=== PATIENT | female | born 1955 | race Caucasian/White ===

== ENCOUNTER 2023-05-11 22:24 | Emergency (ER) | payer MEDICARE, OTHER ==
[~2023-05-11] VITALS: Ht 162.6 cm; Wt 83.5 kg
[2023-05-11 23:41] LABS: BASOPHILS 0.9 % (0-2); EOSINOPHILS 6.8 % (0-6); HEMATOCRIT 27.1 % (35.0-50.0); HEMOGLOBIN 8.7 g/dL (12.0-18.0); LYMPHOCYTES 39.8 % (24-44); MCV 84.3 fl (81-99); NEUTROPHILS 44.5 % (39-80); PLATELET COUNT 328 K/uL (140-440); RBC 3.21 M/ul (4.3-5.7); RDW 17.2 (10.5-15.0)
[2023-05-11 23:42] LABS: BILIRUBIN, URINE NEGATIVE (negative); BLOOD/HGB, URINE TRACE-L (Negative); KETONE, URINE NEGATIVE (Negative); LEUK ESTERASE, URINE TRACE (negative); NITRITE, URINE NEGATIVE (negative); PH, URINE 6.5 (5-7)
[2023-05-11 23:50] LABS: INR 1.18 (0.80-1.30); PARTIAL THROMBOPLASTIN TIME 38.4 Sec (22.9-41.3); PROTIME 14.2 Sec (11.2-14.2)
[2023-05-11 23:51] LABS: BACTERIA, URINE RARE /hpf (negative); CASTS, URINE NONE SEEN \\lpf; CRYSTALS, URINE NONE SEEN (0-1+)
[2023-05-11 23:52] LABS: REFLEX CULTURE, URINE No (No)
[2023-05-11 23:54] LABS: ALBUMIN 2.5 g/dL (3.4-5.0); ALBUMIN/GLOBULIN RATIO 0.61 (1.1-2.4); BILIRUBIN, TOTAL 0.2 ng/dL (0.2-1.0); BUN/CREATININE RATIO 14.66 (6.0-28.6); CALCIUM 9.3 mg/dL (8.5-10.1); CREATININE, SERUM 0.75 mg/dL (0.55-1.02); PROTEIN, TOTAL 6.6 g/dL (6.4-8.2)
[2023-05-12 00:16] LABS: ABO AB; ANTIBODY SCREEN NEGATIVE; RH POSITIVE
[2023-05-12 00:47] VITALS: BP 124/52
[2023-05-12] MEDS ORDERED: K-TAB ER20 MEQ PO (01:51)
[2023-05-14] MEDS ORDERED: CELECOXIB200 MG PO (10:50)
[2023-05-14] MEDS ORDERED: METOPROLOL TAR100 MG PO (10:51)
[2023-05-14] MEDS ORDERED: DULOXETINE HCL40 MG PO (10:52)
[2023-05-14] MEDS ORDERED: LEVOTHYROXINE88 MC1 PO (10:52)
[2023-05-14] MEDS ORDERED: PRAVASTATIN SOD40 MG PO (10:53)
[2023-05-14] MEDS ORDERED: XARELTO20 MG PO (10:53)
== END 2023-05-12 00:47 | disposition home or self-care (01) ==
LOC: ED 22:24
PROVIDERS: Internal Medicine
DX: D64.9 Anemia, unspecified (principal); E83.110 Hereditary hemochromatosis; E87.6 Hypokalemia; Z91.018 Allergy to other foods; Z93.3 Colostomy status
CPT/HCPCS: 36415; 80053; 81001; 85025; 85610; 85730; 86850; 86900; 86901; 99283

== ENCOUNTER 2023-05-14 18:05 | Emergency (ER) | payer MEDICARE, OTHER ==
[~2023-05-14] VITALS: Ht 162.6 cm; Wt 84.9 kg
[~2023-05-14 18:05] MED LIST: CELECOXIB200 MG PO; DULOXETINE HCL40 MG PO; K-TAB ER20 MEQ PO; LEVOTHYROXINE88 MC1 PO; METOPROLOL TAR100 MG PO; PRAVASTATIN SOD40 MG PO; XARELTO20 MG PO
--- OUTSIDE RECORDS SUMMARY | 2023-05-14 18:14 | XMS ---
PreManage Notification: JACKELINE LEDESMA [employer] Events No recent Security Events currently on file CRITERIA MET - [facility] - 2 Visits in 30 Days CARE PROVIDERS There are no care providers on record at this time. Ray has no Care Guidelines for this patient. [facility]12 MO.) [facility] NOTE: Visits indicate total known visits. ED/C VISIT TRACKING (12 MO.) [facility]14[facility]23 18[facility] COMPLAINT: - KNEE PAIN 05/14/2023 10:41 [facility] OR TYPE: Emergency COMPLAINT: - ABDOMINAL PAIN 05/11/2023 22:24 [facility] OR TYPE: Emergency COMPLAINT: - ABNORMAL LAB RESULTS DIAGNOSES: - Allergy to other foods - Anemia, unspecified - Colostomy status - Hereditary hemochromatosis - Hypokalemia INPATIENT VISIT TRACKING (12 MO.) No inpatient visits to display in this time frame [email or web address]
[2023-05-14] MEDS ORDERED: HYDROCODON-ACE1 EA10 (18:16)
[2023-05-14] MEDS ORDERED: IPRAT-ALBUT 0.5-3 ML (18:16)
[2023-05-14 20:32] VITALS: BP 141/65
== END 2023-05-14 20:48 | disposition home or self-care (01) ==
LOC: ED 18:05
DX: M17.11 Unilateral primary osteoarthritis, right knee (principal); I10 Essential (primary) hypertension; E66.9 Obesity, unspecified; J45.909 Unspecified asthma, uncomplicated; E03.9 Hypothyroidism, unspecified; E78.5 Hyperlipidemia, unspecified; I48.91 Unspecified atrial fibrillation; G47.30 Sleep apnea, unspecified; K21.9 Gastro-esophageal reflux disease without esophagitis; Z91.018 Allergy to other foods; Z79.899 Other long term (current) drug therapy
CPT/HCPCS: 36415; 85651; 86140